=== PATIENT | female | born 1960 ===

== ENCOUNTER 2019-06-04 15:17 | Emergency (ER) | payer MEDICAID, OTHER ==
[~2019-06-04] VITALS: Ht 165.1 cm; Wt 95.3 kg
[2019-06-04 15:18] VITALS: BP 173/85
== END 2019-06-04 15:50 | disposition home or self-care (01) ==
LOC: ER 15:26
DX: J02.9 Acute pharyngitis, unspecified (principal); E11.9 Type 2 diabetes mellitus without complications; I10 Essential (primary) hypertension; F17.210 Nicotine dependence, cigarettes, uncomplicated; Z90.49 Acquired absence of other specified parts of digestive tract; Z90.710 Acquired absence of both cervix and uterus; Z98.51 Tubal ligation status

== ENCOUNTER 2023-04-25 12:14 | Emergency (ER) | payer MEDICAID ==
[~2023-04-25] VITALS: Ht 167.6 cm; Wt 107.1 kg
[2023-04-25 13:55] VITALS: BP 117/87; PULSE 105; RESP 18; O2SAT 95
[2023-04-25] MEDS ORDERED: ACET-1080 PO (13:59)
[2023-04-25 14:06] VITALS: TEMP 97.8
[2023-04-25] MEDS: ACETAMINOPHEN 500 MG TAB PO ONE (14:06)
== END 2023-04-25 14:13 | disposition home or self-care (01) ==
LOC: ER 12:14
DX: S63.501A Unspecified sprain of right wrist, initial encounter (principal); I10 Essential (primary) hypertension; E11.9 Type 2 diabetes mellitus without complications; Z90.49 Acquired absence of other specified parts of digestive tract; Z90.710 Acquired absence of both cervix and uterus; Z79.899 Other long term (current) drug therapy; Z88.1 Allergy status to other antibiotic agents; Z88.0 Allergy status to penicillin; Z88.8 Allergy status to other drugs, medicaments and biological substances; W18.39XA Other fall on same level, initial encounter; Y93.89 Activity, other specified; Y92.89 Other specified places as the place of occurrence of the external cause; Y99.8 Other external cause status
CPT/HCPCS: 73110